=== PATIENT | female | born 1940 | race Caucasian/White ===

== ENCOUNTER 2016-10-10 13:10 | Inpatient (IN) | payer MEDICARE ==
[2016-10-10 14:20] LABS: HEMOGLOBIN 12.2 gm/dl (12.3-15.3); RED BLOOD COUNT 3.78 M/UL (4.00-5.10); WHITE BLOOD COUNT 2.2 K/UL (4.5-11.0)
[2016-10-10] MEDS ORDERED: CATAPRES 0.1MG0.1 MG PO (19:41)
[2016-10-10] MEDS ORDERED: COREG 25MG TAB25 MG PO (19:41)
[2016-10-10] MEDS ORDERED: VALIUM 5 MG TAB5 MG PO (19:43)
[2016-10-10] MEDS ORDERED: CARDIZEM CD180 MG PO (19:43)
[2016-10-10] MEDS ORDERED: FIORICET TAB1 EA PO (19:43)
[2016-10-10] MEDS ORDERED: ELIQUIS5 MG PO (19:44)
[2016-10-10] MEDS ORDERED: SUTENT50 MG PO (19:44)
[2016-10-10] MEDS ORDERED: VIAGRA25 MG PO (19:46)
[2016-10-11 02:28] LABS: HEMOGLOBIN 10.7 gm/dl (12.3-15.3); RED BLOOD COUNT 3.34 M/UL (4.00-5.10); WHITE BLOOD COUNT 2.3 K/UL (4.5-11.0)
[2016-10-12 05:22] LABS: HEMOGLOBIN 11.6 gm/dl (12.3-15.3); RED BLOOD COUNT 3.62 M/UL (4.00-5.10); WHITE BLOOD COUNT 2.7 K/UL (4.5-11.0)
[2016-10-13 05:42] LABS: HEMOGLOBIN 10.4 gm/dl (12.3-15.3); RED BLOOD COUNT 3.28 M/UL (4.00-5.10); WHITE BLOOD COUNT 2.4 K/UL (4.5-11.0)
[2016-10-13] MEDS ORDERED: REVATIO 20 MG T20 MG PO (16:49)
[2016-10-14 04:29] LABS: HEMOGLOBIN 11.1 gm/dl (12.3-15.3); RED BLOOD COUNT 3.41 M/UL (4.00-5.10); WHITE BLOOD COUNT 2.4 K/UL (4.5-11.0)
[2016-10-15 04:41] LABS: RED BLOOD COUNT 3.47 M/UL (4.00-5.10); WHITE BLOOD COUNT 1.8 K/UL (4.5-11.0)
[2016-10-15] MEDS ORDERED: LEVAQUIN500 MG PO (09:23)
== END 2016-10-15 11:32 | disposition home or self-care (01) | DRG 193 ==
LOC: ER1 13:10 → ZEROF 16:47 → PROG CARE 16:47
PROVIDERS: Emergency Medicine; Family Medicine; ADMIT Internal Medicine
DX: J18.9 Pneumonia, unspecified organism (principal); D61.810 Antineoplastic chemotherapy induced pancytopenia; C64.9 Malignant neoplasm of unspecified kidney, except renal pelvis; C78.00 Secondary malignant neoplasm of unspecified lung; K52.1 Toxic gastroenteritis and colitis; N17.9 Acute kidney failure, unspecified; T45.1X5A Adverse effect of antineoplastic and immunosuppressive drugs, initial encounter; T36.0X5A Adverse effect of penicillins, initial encounter; Y92.009 Unspecified place in unspecified non-institutional (private) residence as the place of occurrence of the external cause; I48.91 Unspecified atrial fibrillation; I27.2 Other secondary pulmonary hypertension; Z95.0 Presence of cardiac pacemaker; Z88.2 Allergy status to sulfonamides; Z88.8 Allergy status to other drugs, medicaments and biological substances; Z79.01 Long term (current) use of anticoagulants; R16.1 Splenomegaly, not elsewhere classified; N18.9 Chronic kidney disease, unspecified; Z88.5 Allergy status to narcotic agent; Z88.6 Allergy status to analgesic agent; Z79.899 Other long term (current) drug therapy
CPT/HCPCS: 36415; 71010; 71020; 80048; 80053; 80202; 82550; 82553; 83605; 83735; 83880; 84484; 85025; 85027; 85610; 85730; 87040; 93005; 94640; 94664; 94668; 96365; 96366; 99285; J1956; J2550; J3370; J7030; J7050; J7070; J7509

== ENCOUNTER 2016-10-17 18:08 | Emergency (ER) | payer MEDICARE ==
[~2016-10-17 18:08] MED LIST: CARDIZEM CD180 MG PO; CATAPRES 0.1MG0.1 MG PO; COREG 25MG TAB25 MG PO; ELIQUIS5 MG PO; FIORICET TAB1 EA PO; LEVAQUIN500 MG PO; REVATIO 20 MG T20 MG PO; SUTENT50 MG PO; VALIUM 5 MG TAB5 MG PO; VIAGRA25 MG PO
[2016-10-17 20:11] LABS: HEMOGLOBIN 10.8 gm/dl (12.3-15.3); RED BLOOD COUNT 3.37 M/UL (4.00-5.10)
[2016-10-17 20:15] LABS: WHITE BLOOD COUNT 3.9 K/UL (4.5-11.0)
== END 2016-10-17 23:50 | disposition home or self-care (01) ==
LOC: ER1 18:08
PROVIDERS: Physician Assistant
DX: J18.9 Pneumonia, unspecified organism (principal); J98.01 Acute bronchospasm; I48.91 Unspecified atrial fibrillation; Z88.2 Allergy status to sulfonamides; Z88.5 Allergy status to narcotic agent; Z88.8 Allergy status to other drugs, medicaments and biological substances
CPT/HCPCS: 36415; 71020; 80053; 82550; 82553; 83605; 83735; 83874; 83880; 84484; 85025; 87040; 93005; 96361; 96374; 96375; 99284; J1940; J2550; J2930

== ENCOUNTER → 2016-10-22 | Outpatient (CLI) | payer MEDICARE | LOC: KOH-I 15:23 | DX: R05 Cough (principal); R91.8 Other nonspecific abnormal finding of lung field; Z88.8 Allergy status to other drugs, medicaments and biological substances; Z88.5 Allergy status to narcotic agent | CPT/HCPCS: 71020 ==

== ENCOUNTER → 2017-02-08 | Outpatient (CLI) | payer MEDICARE | LOC: CT 10:18 | DX: C64.9 Malignant neoplasm of unspecified kidney, except renal pelvis (principal); E27.8 Other specified disorders of adrenal gland; R91.8 Other nonspecific abnormal finding of lung field; Z95.0 Presence of cardiac pacemaker; Z98.890 Other specified postprocedural states; Z90.89 Acquired absence of other organs; Z90.5 Acquired absence of kidney | CPT/HCPCS: 71250 ==